=== PATIENT | male | born 2000 | race African-American/Black ===

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

== ENCOUNTER 2024-05-09 21:50 | Emergency (ER) | payer SELFPAY ==
--- NOTE | 2024-05-09 22:46 | EDPHYS ---
Physician Documentation [facility] Name: Kasia Kent Age: 24 yrs Sex: Male : 2000 Arrival Date: 05/09/2024 Time: 21:50 Bed IW1 Private MD: ED Physician Tye Asencio HPI: 05/10 01:05 This 24 yrs old Black Male presents to ER via Ambulatory with complaints of Bumps on rt neck. 01:05 Patient presents to the ED with 3 days of having lumps on the back of the neck. Reports rt that they are mildly tender, denies cough, congestion, fever, other B complaints, symptoms are mild in severity, no other aggravating or alleviating factors.. Historical: - Allergies: 05/09 22:43 No Known Allergies; vc1 - Home Meds: 22:43 None [Active]; vc1 - PMHx: 22:43 None; vc1 - PSHx: 22:43 Testicular repair; vc1 - Immunization history:: Adult Immunizations up to date. - Infectious Disease History:: Denies. - Social history:: Smoking status: Patient denies any tobacco usage or history of. - Family history:: not pertinent. ROS: 05/10 01:05 Constitutional: Negative for fever, chills, and weight loss, Cardiovascular: Negative rt for chest pain, palpitations, and edema, Respiratory: Negative for shortness of breath, cough, wheezing, and pleuritic chest pain, Abdomen/GI: Negative for abdominal pain, nausea, vomiting, diarrhea, and constipation, MS/Extremity: Negative for injury and deformity, Skin: Negative for injury, rash, and discoloration, Hematologic/Lymphatic: Positive for swollen nodes, Exam: 01:05 Constitutional: This is a well developed, well nourished patient who is awake, alert, rt and in no acute distress. Head/Face: Normocephalic, atraumatic. Chest/axilla: Normal chest wall appearance and motion. Nontender with no deformity. No lesions are appreciated. Cardiovascular: Regular rate and rhythm with a normal S1 and S2. No gallops, murmurs, or rubs. Normal PMI, no JVD. No pulse deficits. Respiratory: Lungs have equal breath sounds bilaterally, clear to auscultation and percussion. No rales, rhonchi or wheezes noted. No increased work of breathing, no retractions or nasal flaring. Abdomen/GI: Soft, non-tender, with normal bowel sounds. No distension or tympany. No guarding or rebound. No evidence of tenderness throughout. Skin: Warm, dry with normal turgor. Normal color with no rashes, no lesions, and no evidence of cellulitis. MS/ Extremity: Pulses equal, no cyanosis. Neurovascular intact. Full, normal range of motion. Neuro: Awake and alert, GCS 15, oriented to person, place, time, and situation. Cranial nerves II-XII grossly intact. Motor strength 5/5 in all extremities. Sensory grossly intact. Cerebellar exam normal. Normal gait. 01:05 Neck: Lymph nodes: lymphadenopathy is appreciated, posterior cervical nodes, Vital Signs: 05/09 22:42 Height 6 ft. 2 in. ; vc1 22:49 Pulse 82; Resp 15; Temp 98.6; Pulse Ox 100% ; vc1 22:49 BP 125 / 74; vc1 MDM: 22:41 Medical Screening Exam initiated rt 05/10 01:05 Differential Diagnosis Lymphadenopathy. Data reviewed: vital signs, nurses notes. Test rt considered but Not performed: Other Details Stable vital signs, lymphadenopathy noted on exam, labs, imaging are not indicated at this time. Patient was instructed that if the symptoms persisted to get further workup as an outpatient.. Counseling: I had a detailed discussion with the patient and/or guardian regarding the historical points, exam findings, and any diagnostic results supporting the discharge/admit diagnosis, the need for outpatient follow up, to return to the emergency department if symptoms worsen or persist or if there are any questions or concerns that arise at home. Administered Medications: No medications were administered Disposition Summary: 05/09/24 22:46 Discharge Ordered Notes: Location: Home rt Problem: new rt Symptoms: are unchanged rt Condition: Stable rt Diagnosis - Posterior cervical lymphadenopathy rt Followup: rt - With: Private Physician - When: 5 - 6 days - Reason: Discharge Instructions: - Discharge Summary Sheet rt - Lymphadenopathy rt Forms: - Medication Reconciliation Form rt - Antibiotic Education rt - Prescription Opioid Use rt - Patient Portal Instructions rt - Leadership Thank You Letter rt Signatures: Fanny Valdes RN RN vc1 Tye Asencio MD MD rt
--- NOTE | 2024-05-09 22:46 | ER ---
Nurse's Notes [facility] Name: Kasia Kent Age: 24 yrs Sex: Male : 2000 Arrival Date: 05/09/2024 Time: 21:50 Bed IW1 Private MD: Diagnosis: Posterior cervical lymphadenopathy Presentation: 05/09 22:42 Chief complaint: Patient states: bumps on the back of the neck. Coronavirus screen: vc1 Client denies travel out of the [place] in the last 14 days. At this time, the client does not indicate any symptoms associated with coronavirus-19. Ebola Screen: Patient negative for fever greater than or equal to 101.5 degrees Fahrenheit, and additional compatible Ebola Virus Disease symptoms Patient denies exposure to infectious person. Patient denies travel to an Ebola-affected area in the 21 days before illness onset. No symptoms or risks identified at this time. Initial Sepsis Screen: Does the patient have a suspected source of infection? No. Patient's initial sepsis screen is negative. Risk Assessment: Do you want to hurt yourself or someone else? Patient reports no desire to harm self or others. Onset of symptoms was May 06, 2024. 22:42 Method Of Arrival: Ambulatory vc1 22:42 Acuity: [id number] vc1 22:49 Initial Sepsis Screen: Does the patient meet any 2 criteria? No. Patient's initial vc1 sepsis screen is negative. Triage Assessment: 22:46 General: Appears in no apparent distress. comfortable, well groomed, well developed, vc1 well nourished, Behavior is calm, cooperative, appropriate for age. Pain: Complains of pain in base of the skull Pain does not radiate. EENT: No deficits noted. No signs and/or symptoms were reported regarding the EENT system. Neuro: Level of Consciousness is awake, alert, obeys commands, Oriented to person, place, time, situation, Appropriate for age. Cardiovascular: Heart tones S1 S2 present Capillary refill < 3 seconds Patient's skin is warm and dry. Respiratory: Airway is patent Respiratory effort is even, unlabored, Respiratory pattern is regular, symmetrical, Breath sounds are clear bilaterally. GI: No deficits noted. No signs and/or symptoms were reported involving the gastrointestinal system. : No deficits noted. No signs and/or symptoms were reported regarding the genitourinary system. Derm: Skin is intact, is healthy with good turgor, Skin is dry, Skin is normal, Skin temperature is warm. Musculoskeletal: Circulation, motion, and sensation intact. Range of motion: intact in all extremities. Historical: - Allergies: 22:43 No Known Allergies; vc1 - Home Meds: 22:43 None [Active]; vc1 - PMHx: 22:43 None; vc1 - PSHx: 22:43 Testicular repair; vc1 - Immunization history:: Adult Immunizations up to date. - Infectious Disease History:: Denies. - Social history:: Smoking status: Patient denies any tobacco usage or history of. - Family history:: not pertinent. Screenin:45 [facility] ED Fall Risk Assessment (Adult) History of falling in the last 3 months, vc1 including since admission No falls in past 3 months (0 pts) Confusion or Disorientation No (0 pts) Intoxicated or Sedated No (0 pts) Impaired Gait No (0 pts) Mobility Assist Device Used No (0 pt) Altered Elimination No (0 pt) Score/Fall Risk Level 0 - 2 = Low Risk Oriented to surroundings, Maintained a safe environment, Educated pt \T\ family on fall prevention, incl call for assistance when getting out of bed. Abuse screen: Denies threats or abuse. Nutritional screening: No deficits noted. Tuberculosis screening: No symptoms or risk factors identified. Vital Signs: 22:42 Height 6 ft. 2 in. ; vc1 22:49 Pulse 82; Resp 15; Temp 98.6; Pulse Ox 100% ; vc1 22:49 BP 125 / 74; vc1 ED Course: 21:54 Patient arrived in ED. mr 21:57 Tye Asencio MD is Attending Physician. rt 22:43 Triage completed. vc1 22:45 Arm band placed on left wrist. vc1 22:46 Patient has correct armband on for positive identification. Bed in low position. Call vc1 light in reach. Provided Education on: f/u with PCP. seen in triage. 22:49 No provider procedures requiring assistance completed. Patient did not have IV access vc1 during this emergency room visit. Administered Medications: No medications were administered Medication: 22:46 VIS not applicable for this client. vc1 Outcome: 22:46 Discharge ordered by . rt 22:49 Discharged to home ambulatory, with family, vc1 22:49 Condition: good 22:49 Discharge instructions given to patient, Instructed on discharge instructions, follow up and referral plans. Demonstrated understanding of instructions, follow-up care, 22:50 Patient left the ED. vc1 Signatures: Radhika Fournier, Reg Reg Fanny Chamberlain, RN RN vc1 Tye Asencio MD MD rt
[2024-05-09 23:47] VITALS: BP 125/74; TEMP 98.6; O2SAT 100
== END 2024-05-09 22:50 | disposition home or self-care (01) ==
LOC: ER 21:50
DX: R59.0 Localized enlarged lymph nodes (principal)